=== PATIENT | male | born 1975 | race Caucasian/White ===

== ENCOUNTER 2021-07-22 22:35 | Emergency (ER) | payer OTHER ==
[~2021-07-22 22:35] MED LIST: AUGMENTIN 875-1 EACH PO; BACTRIM DS TAB1 EACH PO; BACTROBAN NASAL1 G1; HYDROCODON-ACE1 EAC2 PO; IBUPROFEN600 MG PO; KEFLEX CAP 500500 MG PO; NORCO 5-325 TA1 EACH PO; PRILOSEC OTC20 MG PO; VIBRAMYCIN100 MG PO
[2021-07-23] MEDS ORDERED: IBUPROFEN600 MG PO (00:47)
[2021-07-23] MEDS ORDERED: CLEOCIN HCL300 MG PO (00:47)
== END 2021-07-23 01:51 | disposition home or self-care (01) ==
LOC: ER1 22:35
DX: S80.12XA Contusion of left lower leg, initial encounter (principal); L03.116 Cellulitis of left lower limb; F17.210 Nicotine dependence, cigarettes, uncomplicated; W22.8XXA Striking against or struck by other objects, initial encounter; Y92.69 Other specified industrial and construction area as the place of occurrence of the external cause; Y99.0 Civilian activity done for income or pay
CPT/HCPCS: 73590; 96374; 99283

== ENCOUNTER 2021-09-15 14:12 | Emergency (ER) | payer OTHER ==
[~2021-09-15 14:12] MED LIST changes: +CLEOCIN HCL300 MG PO
== END 2021-09-15 19:58 | disposition home or self-care (01) ==
LOC: ER1 14:12
DX: S13.4XXA Sprain of ligaments of cervical spine, initial encounter (principal); S93.401A Sprain of unspecified ligament of right ankle, initial encounter; S23.3XXA Sprain of ligaments of thoracic spine, initial encounter; V49.40XA Driver injured in collision with unspecified motor vehicles in traffic accident, initial encounter; Y92.410 Unspecified street and highway as the place of occurrence of the external cause
CPT/HCPCS: 70450; 72125; 72128; 73610; 99285

== ENCOUNTER 2022-03-15 12:46 | Emergency (ER) | payer OTHER ==
[2022-03-15 14:58] LABS: HEMOGLOBIN 13.2 gm/dl (14.0-17.5); RED BLOOD COUNT 4.47 M/UL (4.20-5.50); WHITE BLOOD COUNT 7.4 K/UL (4.5-11.0)
[2022-03-15 15:29] LABS: BUN/CREATININE RATIO 14 (0-10)
== END 2022-03-15 21:52 | disposition home or self-care (01) ==
LOC: ER1 12:46
PROVIDERS: Emergency Medicine; Surgery
PROC: 0DC38ZZ Extirpation of Matter from Lower Esophagus, Via Natural or Artificial Opening Endoscopic (ICD-10-PCS; principal; 2022-03-15 19:06)
DX: T18.128A Food in esophagus causing other injury, initial encounter (principal); F17.200 Nicotine dependence, unspecified, uncomplicated; X58.XXXA Exposure to other specified factors, initial encounter; Y93.89 Activity, other specified
CPT/HCPCS: 71260; 80053; 85025; 96374; 96375; 96376; 99284; J1610; J2270; J2405; J2704; J7030; J7040; Q9967